=== PATIENT | male | born 1965 | race Caucasian/White ===

== ENCOUNTER 2018-05-17 13:24 | Observation (INO) ==
[2018-05-17] MEDS ORDERED: levETIRAcetam 1,000 MG in 0.9 % Sodium Chloride 100 ML IVPB ONE (13:35)
[2018-05-17] MEDS ORDERED: *HR* LORazepam 2 MG/ML VIAL IVP ONE (13:37)
[2018-05-17 14:01] LABS: Basophils % 0.3 %; Eosinophils % 0.1 %; Hematocrit 47.6 % (37.5-50.1); Hemoglobin 16.6 g/dL (12.9-16.9); Immature Granulocytes % 0.6 % (0-4); Lymphocytes # 0.6 K/mcL (0.6-4.6); Lymphocytes % 8.7 %; Mean Corpuscular HGB Conc 34.9 g/dL (31.6-35.5); Mean Corpuscular Hemoglobin 33.1 pg (28.0-33.3); Mean Corpuscular Volume 94.8 fL (83.0-100.0); Mean Platelet Volume 8.8 fL (9.4-12.4); Monocytes # 0.5 K/mcL (0.0-1.3); Monocytes % 7.2 %; Platelet Count 184 K/mcL (140-400); Red Blood Count 5.02 M/mcL (4.19-5.50); Red Cell Distribution Width 14.1 % (11.5-14.5); Segmented Neutrophils % 83.1 %
--- NOTE | 2018-05-17 14:17 | Emergency Department Note ---
Disposition Clinical Impression: Seizure Disposition: Admitted As Inpatient Condition: Good General Adult HPI - General Chief complaint: ED Seizure Stated complaint: seizures Time Seen by Provider: 05/17/18 13:29 Source: patient Nursing Notes Reviewed: Yes Vital Signs Reviewed: Yes - History of Present Illness HPI Narrative: 52-year-old male with a history of seizure disorder. It is unclear if he is on medications currently but he admits to alcohol use. He admits a heavy drinks a the first 2 weeks of the month. He has no fever, chills. Apparently had 4 seizures at home today. Consideration of seizures is actually unknown. He actually fell out of the bed and struck his left. He is neurologically intact at this time. His vital signs are stable. He does not trigger CIWA. General: No acute distress HEENT: Pupils equal and reactive to light, extraoccular muscle movement is normal, TMS are clear bilaterally. Heart: RRR, No murmor rub or gallop Lungs: lungs clear, no wheezing, rales or ronchi. ABD: SNT, no focal areas or tenderness, no guarding or rebound tenderness. Extremities: No cyanosis, clubbing or edema Neuro: CN 2-12 in tact, no focal deficit. strength 5/5. A 12 point review of systems is completed and pertinent positives are discussed in the history of present illness Medical decision making Final is consistent with possible seizure. He was postictal on arrival but alert and oriented without neurological deficit. CT scan shows no acute findings. He was loaded with Keppra, banana bag initiated with multivitamin. Patient will be admitted to the hospital for further management of possible all call withdrawal exacerbating underlying seizure disorder. Pain Scale: 6 - Related Data Home Medications Medication Instructions Recorded Confirmed No Known Home Drugs 05/17/18 05/17/18 Allergies Allergy/AdvReac Type Severity Reaction Status Date / Time green beans Allergy Unknown See Uncoded 05/30/15 18:17 Comments Past Medical History - Past Medical History Medical history: Reports: seizures Surgical history: Reports: appendectomy Psychiatric history: Reports: no psych history - Social History Smoking Status: Current every day smoker Smokeless Tobacco Status: Yes Alcohol use: Reports: heavy, recent Drug use: Reports: none Physical Exam - General General appearance: alert Course Vital Signs Temperature 98.2 F 05/17/18 13:35 Pulse Rate 95 05/17/18 13:35 Respiratory Rate 22 05/17/18 13:35 Blood Pressure 132/82 05/17/18 13:35 O2 Sat by Pulse Oximetry 98 05/17/18 13:35 Temperature 98.0 F 05/17/18 20:05 Pulse Rate 92 05/17/18 20:05 Respiratory Rate 16 05/17/18 20:05 Blood Pressure 128/84 05/17/18 20:05 O2 Sat by Pulse Oximetry 96 05/17/18 20:05 Oxygen Delivery Oxygen Delivery Room Air Medical Decision Making - MDM Narrative Medical decision making narrative: Heart rate is 94 bpm, axis is left, intervals are normal, borderline left atrial enlargement, nonspecific ECG, ST segments are nonspecific in V1 and V2. Abnormal nonspecific ECG - Lab Data Result diagrams: 05/17/18 13:48 05/17/18 13:48 Lab Results 05/17/18 05/17/18 05/17/18 Range/Units 13:48 13:48 13:48 WBC 7.2 (4.3-11.1) K/mcL RBC 5.02 (4.19-5.50) M/mcL Hgb 16.6 (12.9-16.9) g/dL Hct 47.6 (37.5-50.1) % MCV 94.8 (83.0-100.0) fL MCH 33.1 (28.0-33.3) pg MCHC 34.9 (31.6-35.5) g/dL RDW 14.1 (11.5-14.5) % Plt Count 184 (140-400) K/mcL MPV 8.8 L (9.4-12.4) fL Immature Gran % 0.6 (0-4) % Seg Neutrophils % 83.1 % Lymphocytes % 8.7 % Monocytes % 7.2 % Eosinophils % 0.1 % Basophils % 0.3 % Neutrophils # 6.0 (1.6-8.9) K/mcL Lymphocytes # 0.6 (0.6-4.6) K/mcL Monocytes # 0.5 (0.0-1.3) K/mcL Eosinophils # 0.0 (0.0-0.6) K/mcL Basophils # 0.0 (0.0-0.2) K/mcL Sodium 137 (136-145) mEq/L Potassium 3.6 (3.5-5.1) mEq/L Chloride 106 (98-107) mEq/L Carbon Dioxide 25 (23-29) mEq/L BUN 7 (6-20) mg/dL Creatinine 0.87 (0.70-1.30) mg/dL Est GFR ( Amer) > 60 (> 60) Est GFR (Non-Af Amer) > 60 (> 60) BUN/Creatinine Ratio 8 (6-26) Glucose 106 H (70-105) mg/dL Calculated Osmolality 282 (280-300) Lactic Acid 1.9 (0.5-2.2) mmol/L Calcium 9.0 (8.6-10.3) mg/dL Total Bilirubin 0.5 (0.3-1.0) mg/dL AST 25 (13-39) Units/L ALT 21 (7-52) Units/L Alkaline Phosphatase 73 (34-104) Units/L Serum Total Protein 6.9 (6.4-8.9) g/dL Albumin 4.1 (3.5-5.7) g/dL Globulin 2.8 (2.4-3.5) g/dL Albumin/Globulin Ratio 1.5 (1.1-2.2)
[2018-05-17 14:21] LABS: Alanine Aminotransferase 21 Units/L (7-52); Albumin 4.1 g/dL (3.5-5.7); Albumin/Globulin Ratio 1.5 (1.1-2.2); Alkaline Phosphatase 73 Units/L (34-104); Aspartate Amino Transferase 25 Units/L (13-39); BUN/Creatinine Ratio 8 (6-26); Bilirubin,Total 0.5 mg/dL (0.3-1.0); Blood Urea Nitrogen 7 mg/dL (6-20); Carbon Dioxide 25 mEq/L (23-29); Chloride 106 mEq/L (98-107); Globulin 2.8 g/dL (2.4-3.5); Glucose 106 mg/dL (70-105); Osmolality,Calculated 282 (280-300); Potassium 3.6 mEq/L (3.5-5.1); Sodium 137 mEq/L (136-145); Total Protein 6.9 g/dL (6.4-8.9); eGFR For Non-African Americans > 60 (> 60)
[2018-05-17] MEDS: Thiamine (B-1) 100 MG, Folic Acid 1 MG, MVI, adult with vitamin K 10 ML in 0.9 % Sodi... IVPB SCH ×2 (15:46→21:15)
[2018-05-17] MEDS ORDERED: Naloxone 0.4 MG/ML INJ IVP PRN (16:18)
[2018-05-17] MEDS ORDERED: *HR* Promethazine 25 MG/ML VIAL IVP PRN (16:21)
[2018-05-17] MEDS ORDERED: *HR* LORazepam 2 MG/ML VIAL IVP PRN ×2 (16:21)
--- NOTE | 2018-05-17 17:11 | Internal Med History&Physical ---
Date of Encounter: 05/17/18 Time of Encounter: 16:46 Internal Medicine - H&P: HPI Chief complaint: seizure Admitted From: Emergency Dept Plans for Post Hospital Care: Home History of present illness: Mr. Delgadillo is a 52 year old male past medical hx of seizure ETOH abuse. According to the patient he normally drinks 4 25oz beers every day since he was about 14 yr old. He stopped drinking about a week a go because he ran out of money. He states that he has hx of seizure which began approx 2 yrs and was on seizure medications but he has not taken medication for 2 yrs becuse he cant afford medication. His last seizure was 2 days ago. Today he reports that he had 4 seizures. He describes seizures activity as heavy breathing and then he falls to ground, lost consciousness and did lose control of bowel. He states tht after he has a seizure he jumps up and runs away . Did not bite tongue . ED he was post ictal and was loaded with Keppra CT of head was negative. Lab work unremarkable, does not appear to be ETOH withdrawal. Will continue with neuro checks and CIWA for now , seizure precaution. He is hemodynamically stable at this time Past Med Surg Social Fam HX - Past Medical History Medical history: seizures Psychiatric history: no psych history - Past Surgical History Surgical History: appendectomy - Social History Smoking Status: Current every day smoker Smokeless Tobacco Status: Yes Alcohol use: heavy, recent Drug use: none - Family History Father Living Status: Internal Medicine - H&P: Meds No Known Home Drugs 05/17/18 [History] 3 Allergy/AdvReac Type Severity Reaction Status Date / Time green beans Allergy Unknown See Uncoded 05/30/15 18:17 Comments All Systems PM: A 10-system review of systems was performed and is negative for pertinent findings except as documented above in the HPI. - Constitutional Constitutional: no chills, no fever(s), no night sweats - EENT Eyes: no change in vision, no discharge, no pain, no photophobia Ears: no ear discharge, no ear pain, no tinnitus Nose, mouth and throat: no dysphagia, no nasal discharge, no neck pain, no sore throat - Cardiovascular Cardiovascular ROS IM: no chest pain, no diaphoresis, no dyspnea, no lightheadedness, no palpitations, no syncope - Respiratory Respiratory: no cough, no dyspnea, no wheezing, no excessive phlegm production - Gastrointestinal Gastrointestinal: no abdominal pain, no diarrhea, no hematemesis, no hematochezia, no melena, no nausea, no vomiting - Musculoskeletal Musculoskeletal ROS IM: no numbness, no tingling - Integumentary Integumentary IM: no rash, no unusual bruising - Neurological Neurological ROS: no confusion, no convulsions, no focal weakness, no numbness, no tingling, no tremor(s) - Hematologic/Lymphatic Hematologic/Lymphatic: no easy bruising - Constitutional Vitals: Temp Pulse Resp BP Pulse Ox 97.7 F 95 18 129/78 98 05/17/18 16:08 05/17/18 16:08 05/17/18 16:08 05/17/18 16:08 05/17/18 16:08 General appearance: Present: A&O X 3 Exam: see above - Head Head exam: Present: atraumatic, normocephalic - Eye Eye exam: Present: PERRL, conjuntiva pink, sclera anicteric Pupils: Present: PERRL - Neck Neck exam general surgery: Present: supple, trachea midline. Absent: lymphadenopathy - Respiratory Respiratory exam: Present: CTAB. Absent: accessory muscle use, rales, rhonchi, wheezes - Cardiovascular Cardiovascular exam: Present: RRR, +S1, +S2. Absent: diastolic murmur, gallop, rubs, systolic murmur - GI/Abdominal GI/Abdominal exam: Present: normal bowel sounds, soft, no peritoneal signs. Absent: distended, tenderness - Extremities Exam Extremities exam: Present: warm, radial pulses palpable and symmetrical. Absent : calf tenderness, cyanotic, pedal edema - Neurological Exam Neurological exam: Present: CN II-XII intact, oriented X3, no focal deficits. Absent: pronater drift, facial droop, speech deficit - Skin Skin exam: Present: dry, intact Internal Med - H&P Results - Labs CBC & Chem 7: 05/17/18 13:48 05/17/18 13:48 - Assessment and plan (1) DVT prophylaxis Current Visit: No Status: Acute Assessment and plan: SCD (2) Seizure Current Visit: No Status: Acute Assessment and plan: 1 Patient states that he has hx of seizure however he has not taken any seizure medication for approx 2 yrs. His last seizure prior to today was 2 days ago. He does drink beer daily and stopped drinking about a week ago. He states he had 4 seizures today with loss of bowels 2 Loaded with Keppra in ED- will cont per neurology recommendations 3 neurology consulted - will order EEG and MRI of head per recommendations 4 seizure precautions 5 check tox screen (3) Alcohol abuse Current Visit: No Status: Chronic Assessment and plan: 1 Patient drinks 4 25oz beers daily since he was 14 yr old - stopped drinking about a week ago because he didn't have any money. No withdrawal sx noted at this time 2 CIWA 3 social service consult 4 fall precautions 5 seizure precautions - Time Spent With Patient Total time spent is greater than 50% in coordination of care (as documented) at patient's floor/unit and/or counseling patient:
[2018-05-18 06:58] LABS: Hematocrit 44.3 % (37.5-50.1); Mean Corpuscular HGB Conc 33.6 g/dL (31.6-35.5); Mean Corpuscular Hemoglobin 32.1 pg (28.0-33.3); Mean Corpuscular Volume 95.5 fL (83.0-100.0); Mean Platelet Volume 9.2 fL (9.4-12.4); Platelet Count 181 K/mcL (140-400); Red Blood Count 4.64 M/mcL (4.19-5.50); Red Cell Distribution Width 14.1 % (11.5-14.5)
[2018-05-18 07:01] LABS: Hemoglobin 14.9 g/dL (12.9-16.9)
[2018-05-18 07:12] LABS: BUN/Creatinine Ratio 11 (6-26); Blood Urea Nitrogen 8 mg/dL (6-20); Calcium 8.7 mg/dL (8.6-10.3); Carbon Dioxide 21 mEq/L (23-29); Chloride 109 mEq/L (98-107); Glucose 82 mg/dL (70-105); Magnesium 2.3 mg/dL (1.6-2.6); Osmolality,Calculated 277 (280-300); Potassium 3.3 mEq/L (3.5-5.1); Sodium 135 mEq/L (136-145); eGFR For Non-African Americans > 60 (> 60)
--- NOTE | 2018-05-18 10:54 | Neurology - Consult Note ---
Date of Encounter: 05/18/18 Time of Encounter: 10:40 Assessment and Plan (1) Seizure Current Visit: Yes Status: Chronic Patient states he has a history of seizures. Can not detail if they are partial , complex, or generalized tonic clonic. Per nursing no seizures witnessed after patient was admitted. He is on Keppra. MRI normal, Awaiting EEG. - Follow up EEG - Continue Keppra 500mg BID - Seizure precautions and continue to monitor for seizure like activity (2) Alcohol abuse Current Visit: No Status: Chronic History of significant alcohol abuse. last drink 1 week ago. Denies any history of alcohol withdrawal related seizures. -Continue CIWA protocol History of Present Illness Chief complaint: seizures HPI: Mr. Delgadillo is a 52 year old male with a past medical history of seizure disorder and alcohol abuse who was admitted to the hospital yesterday after three seizures episodes. Patient states that he usually experiences on average one seizure a month; however, yesterday he sates that he had three seizures in succession. These were at home and witnessed by his significant other. He states hat prior to the seizure he felt short of breath and sat down and then does not recall the events afterward, but says that his girl friend noticed him having active seizures and she called EMS. Does not recall if she told him if he was shaking or experiencing tremors during these evens. Denies biting tongue or urinary/bowel incontinence at home, but states he had a seizure en route where he experienced loss of urine. He was previously on antipepileptic medications over the past two to three years but states that he has not visited with his neurologist in over a year and does not remember the doctor's name or the name of the medication that he was prescribed. He claims that he had been rationing the medication that he received from the neurologist over the past year, consuming a few pills each month, and ran out last month. Denies taking the medication on a daily basis. Patient also has an extensive alcohol abuse history, he states that his last drink was approximately 1 week ago as he could not afford to purchase more alcohol. Denies any history of alcohol withdrawal seizures in the past. Denies any drug use or new medications aside from aspirin. He denies any fevers, chills, current headache, SOB, CP, parasthesias, numbness, unilateral weakness, or changes in speech or confusion. Past Med Surg Social Fam HX - Past Medical History Medical history: seizures Psychiatric history: no psych history - Past Surgical History Surgical History: appendectomy - Social History Smoking Status: Current every day smoker Smokeless Tobacco Status: Yes Alcohol use: heavy, recent Drug use: none - Family History Father Living Status: Age at : 59 Cause of : [place] Medications and Allergies No Known Home Drugs 05/17/18 [History] 3 Allergy/AdvReac Type Severity Reaction Status Date / Time green beans Allergy Unknown See Uncoded 05/30/15 18:17 Comments All Systems: The remainder of the systems were reviewed and are negative - Constitutional Constitutional ROS IM: as per HPI Physical Examination - Vital Signs Vital Signs: Initial Vital Signs Temp Pulse Resp BP Pulse Ox 98.2 F 95 22 132/82 98 05/17/18 13:35 05/17/18 13:35 05/17/18 13:35 05/17/18 13:35 05/17/18 13:35 - Exam Exam: General: comfortable, sitting reclined in bed, no distress HEENT: Atraumatic, no noticeable evidence of blunt trauma. Pupils are equal, round, and reactive to light and accomodation. oropharynx reveals partial loss of dentition otherwise clear without lesions. Hearing grossly intact. Heart: regular rate and rhythm, no murmurs Lungs: clear to auscultation bilaterally Abdomen: soft nontender, positive bowel sounds Neurological: Cranial Nerves: pupils are equal round and reactive to light and accomodation. EOMI. sensation intact and symmetrical. Tongue protrudes midline. SCM strenght intact bilaterally. Hearing grossly intact, vision intact. Upper extremities: sensation intact bilaterally. Strength is 5/5 bilaterally and symmetric. Full ROM. Finger to nose testing is normal. Rapid alternating hand movements are normal. no pronator drift. biceps and brachioradialis reflexes are 1+ symmetric Lower extremities:Sensation intact bilaterally. Strength is 5/5 bilaterally and symmetric. Heel to walker testing is normal. patellar and achilles reflexes are 2 + bilaterally. negative babinski. Results - Laboratory Findings CBC and BMP: 05/18/18 06:22 05/18/18 06:22 Abnormal lab findings: Abnormal lab results MPV 9.2 fL (9.4-12.4) L 05/18/18 06:22 Sodium 135 mEq/L (136-145) L 05/18/18 06:22 Potassium 3.3 mEq/L (3.5-5.1) L 05/18/18 06:22 Chloride 109 mEq/L (98-107) H 05/18/18 06:22 Carbon Dioxide 21 mEq/L (23-29) L 05/18/18 06:22 Calculated Osmolality 277 (280-300) L 05/18/18 06:22 Consult Discharge Plan - Plan Referrals: Dayday Aguero MD [Primary Care Provider] - 05/25/18 2:00 pm
[2018-05-18 10:56] VITALS: BP 101/65
[2018-05-18] MEDS ORDERED: *HR* LORazepam 2 MG/ML VIAL IVP PRN (11:01)
--- NOTE | 2018-05-18 13:38 | Discharge Summary ---
- NOTES TO OUTPATIENT PROVIDER Notes to Outpatient Provider: Keppra 500 mg by mouth twice a day Will follow-up with neurology as outpatient Orders not resulted at time of discharge: Pending orders 05/17/18 16:24 Urine tox screen [Drug Screen, Urine] [UCHEM] Routine 05/19/18 04:00 Basic Metabolic Panel AM 0400 Complete Blood Count w/o Diff [HEME] AM 0400 Magnesium AM 0400 05/20/18 04:00 Basic Metabolic Panel AM 0400 Complete Blood Count w/o Diff [HEME] AM 0400 Magnesium AM 0400 Date of Encounter: 05/18/18 Time of Encounter: 13:33 - Discharge Diagnosis (1) Seizure Priority: Primary Status: Chronic (2) Alcohol abuse Priority: Secondary Status: Chronic Hospital course: Mr. Delgadillo is a 52 year old male past medical history of seizure disorder and I will call abuse he [place] [facility] [place] experiencing 3 seizure episodes yesterday. Patient states that he does have occasional seizures approximately once a month most recent seizure prior to this episode occurred approximately 2 days ago. Patient has been on antiepileptic medication in the past however he has not taken it in the past 2 years he has not seen her neurologist in over a year and does not recall the name of the medication that he was taking for seizures. He does drink alcohol daily until he runs out of money and then experiences withdrawal symptoms. He denies any seizures with withdrawals in the past. He states his last drink was over a week ago. Yesterday he experienced 3 seizure episodes at home that was witnessed by his girlfriend who called EMS. He denies findings tonic or urinary bowel incontinence at home however he did experience a seizure and Route with EMS and loss control of bowel. Lab work in the ER was unremarkable he was given a loading dose of Keppra and then placed on Keppra 500 mg twice a day per neurology's recommendation. MRI was completed with no acute changes. Patient was seen by neurology who felt patient is okay to discharge and follow up in 1-2 weeks. He will need a long-term inhibitory EEG for seizure confirmation as outpatient. He will be discharged home with a prescription Keppra. I advised patient to stop drinking and he was given information about AA per social work coordinator he is hemodynamically stable at this time is ready for discharge. - Time Spent with Patient Total time spent providing and/or coordinating discharge services: - Discharge Medications Prescriptions: LevETIRAcetam [Keppra] 500 mg PO BID #60 tablet Home Medications: LevETIRAcetam [Keppra] 500 mg PO BID #60 tablet 05/18/18 [Rx] Allergies/Adverse Reactions: 3 Allergy/AdvReac Type Severity Reaction Status Date / Time green beans Allergy Unknown See Uncoded 05/30/15 18:17 Comments Date of admission: 05/17/18 15:14 Primary care physician: Dayday Aguero MD Consults: 05/17/18 16:21 Consult to Condenser Operator [CONS] Routine Reason for SW Consult: discharge planning 05/17/18 16:44 Consult to Neurology [CONS] Routine Consulting Provider: Neurology [facility] Reason for Consult: seizures Time Notified: 16:44 Call Completed: Yes Discharging clinician: Cris Peacock Anticipated date of discharge: 05/18/18 - Constitutional Vitals: Temp Pulse Resp BP Pulse Ox 97.8 F 82 16 101/65 95 05/18/18 10:54 05/18/18 10:54 05/18/18 10:54 05/18/18 10:54 05/18/18 10:54 General appearance: Present: A&O X 3 Exam: see above - Head Head exam: Present: atraumatic, normocephalic - Eye Eye exam: Present: PERRL, conjuntiva pink, sclera anicteric Pupils: Present: PERRL - Neck Neck exam general surgery: Present: supple, trachea midline. Absent: lymphadenopathy - Respiratory Respiratory exam: Present: CTAB. Absent: accessory muscle use, rales, rhonchi, wheezes - Cardiovascular Cardiovascular exam: Present: RRR, +S1, +S2. Absent: diastolic murmur, gallop, rubs, systolic murmur - GI/Abdominal GI/Abdominal exam: Present: normal bowel sounds, soft, no peritoneal signs. Absent: distended, tenderness - Extremities Exam Extremities exam: Present: warm, radial pulses palpable and symmetrical. Absent : calf tenderness, cyanotic, pedal edema - Neurological Exam Neurological exam: Present: CN II-XII intact, oriented X3, no focal deficits. Absent: pronater drift, facial droop, speech deficit - Skin Skin exam: Present: dry, intact - Patient Status Disposition: Home, Self-Care Condition: Good Functional capacity at discharge: independent ambulation Overall status at discharge: patient is back to baseline - Discharge Instructions Follow Up With: Dayday Aguero MD [Primary Care Provider] - 05/25/18 2:00 pm Cornelio Sanchez MD [Partnered Physician] - (Your appointment has been requested. Our offices will call you with an appointment date and time. ) - Diet and Activity Activity: increase activity as tolerated Diet: advance to your usual diet
--- NOTE | 2018-05-19 00:49 | Electrocardiograph Report ---
[facility] Test Date: 2018-05-17 Pat Name: Андрей Delgadillo Department: [id number] Room: 3B63 Gender: M Wig Maker: : 1965 Requested By: Estiven Dao Order Number: [id number] Reading MD: Christal Carney Measurements Intervals [place] Rate: 94 P: 15 HI: 158 QRS: -20 QRSD: 97 T: 45 QT: 339 QTc: 424 Interpretive Statements Sinus rhythm Probable left atrial enlargement Borderline left axis deviation RSR' in V1 or V2, right VCD or RVH Electronically Signed On 05-19-2018 0:47:12 EDT by Christal Carney
== END 2018-05-18 16:04 | disposition home or self-care (01) ==
LOC: EMEROOARM 13:24 → 3BNU 13:24
PROVIDERS: ADMIT Internal Medicine; ATTEND Internal Medicine